=== PATIENT | female | born 1990 ===

== ENCOUNTER 2017-02-25 21:40 | Emergency (ER) | payer SELFPAY ==
[2017-02-25 21:53] VITALS: BP 142/71; PULSE 79; RESP 16; TEMP 98; O2SAT 100
--- NOTE | 2017-02-25 23:06 | ED PDOC ---
HPI: Chest Pain Time Seen by Provider: 02/25/17 21:56 Chief Complaint (Nursing): Chest Pain Chief Complaint (Provider): Chest Pain History Per: Patient History/Exam Limitations: no limitations Onset/Duration Of Symptoms: Days (x2) Current Symptoms Are (Timing): Still Present Additional Complaint(s): Cary Swann is a 26 year old female who presents to the emergency department with a complaint of intermittent anterior chest pain exasperated with arm movements. Denied difficulty breathing, cough, legs swelling, radiation of pain or shortness of breath with exertion. PMD: none provided Past Medical History Reviewed: Historical Data, Nursing Documentation, Vital Signs Vital Signs: Last Vital Signs Temp 98.0 F 02/25/17 21:51 Pulse 79 02/25/17 21:51 Resp 16 02/25/17 21:51 BP 142/71 02/25/17 21:51 Pulse Ox 100 02/26/17 02:58 - Medical History PMH: No Chronic Diseases - Surgical History Surgical History: No Surg Hx - Family History Family History: States: Unknown Family Hx - Social History Current smoker - smoking cessation education provided: No Alcohol: Social Drugs: Denies - Home Medications Home Medications: Ambulatory Orders Medication Instructions Recorded Naproxen 375 mg PO Q8 PRN #21 tab 08/08/14 diaZEpam [Valium] 5 mg PO Q6 PRN #14 tab 08/08/14 Cyclobenzaprine [Cyclobenzaprine 10 mg PO TID PRN #20 tab 04/28/16 HCl] Lidoderm Patch Removal 1 unit TOP DAILY #30 ea 04/28/16 Naproxen [Naprosyn] 500 mg PO BID #20 tab 04/28/16 - Allergies Allergies/Adverse Reactions: Allergies Allergy/AdvReac Type Severity Reaction Status Date / Time No Known Allergies Allergy Verified 02/25/17 21:51 MERCY Risk Score for UA/NSTEMI - MERCY Risk Score Age > 64: NO 3 or more CAD Risk Factors: NO Known CAD (Stenosis greater than 50%): NO Aspirin use in past 7 days: NO Severe Angina: NO EKG ST changes greater than 0.5mm: NO Positive Cardiac Marker: NO MERCY Score: 0 Risk %: 5% Curb-65 Severity Score - CURB-65 Severity Score Confusion: No Bun >19mg/dl (>7mmol/L): No Respiratory Rate greater than/equal to 30: No Systolic BP <90 or Diastolic BP less than/equal 60mmHg: No Age >64: No Curb-65 Score: 0 Percentage 30-day mortality: 0.6% Review of Systems ROS Statement: Except As Marked, All Systems Reviewed And Found Negative Cardiovascular: Positive for: Chest Pain (anterior intermittently) Respiratory: Negative for: Cough, SOB with Exertion, Other (dyspnea) Musculoskeletal: Negative for: Other (leg swellings) Physical Exam - Reviewed Nursing Documentation Reviewed: Yes Vital Signs Reviewed: Yes - Physical Exam Appears: Positive for: Well, Non-toxic, No Acute Distress Head Exam: Positive for: ATRAUMATIC, NORMAL INSPECTION, NORMOCEPHALIC Skin: Positive for: Normal Color Cardiovascular/Chest: Positive for: Regular Rate, Rhythm, Other (tender anterior chest wall). Negative for: Chest Non Tender Respiratory: Positive for: Normal Breath Sounds. Negative for: Crackles, Rales , Rhonchi, Wheezing Gastrointestinal/Abdominal: Positive for: Normal Exam Extremity: Positive for: Normal ROM. Negative for: Tenderness, Pedal Edema, Deformity Neurologic/Psych: Positive for: Alert, professional advisor II-XII, Oriented - Laboratory Results Result Diagrams: 02/25/17 23:07 02/25/17 23:07 - ECG O2 Sat by Pulse Oximetry: 100 (RA) Pulse Ox Interpretation: Normal Medical Decision Making Medical Decision Making: Initial Impression: Chest Pain Differential diagnosis: Costochondritis R/O acute coronary syndrome, pulmonary embolism Initial Plan: * EKG * Labs * Troponin I * D Dimer * CXR * Toradol 30mg IVP * mainframe systems administrator * CTA chest with IV contrast Time: 0206 --CTA chest FINDINGS: Limitations: Suboptimal timing of bolus. Pulmonary arteries: No definite pulmonary embolism. Aorta: No aneurysm. No dissection. Lungs: No consolidation. RIGHT middle lobe calcified granuloma. 0.2 cm subpleural nodule vs focal scarring RIGHT lower lobe. Pleural space: No significant effusion. No pneumothorax. Heart: Mild cardiomegaly. No significant pericardial effusion. Bones/joints: No acute fracture. No dislocation. Soft tissues: Unremarkable. Lymph nodes: No pathologically enlarged lymph nodes. Kidneys and ureters: Small calculus within LEFT kidney. IMPRESSION: 1. No definite CT evidence of pulmonary embolism. 2. Incidental/non-acute findings are described above. Time: 0258 Upon provider reevaluation patient is medically stable and requires no further treatment in the ED at this time. Patient will be discharged home. Counseling was provided and all questions were answered regarding diagnosis and need for follow up with [facility]. There is agreement to discharge plan. Return if symptoms persist or worsen. Clinical Impression: Chest Pain Scribe Attestation: Documented by Christiana Patton, acting as a scribe for Rm Valero MD. Provider Scribe Attestation: All medical record entries made by the Scribe were at my direction and personally dictated by me. I have reviewed the chart and agree that the record accurately reflects my personal performance of the history, physical exam, medical decision making, and the department course for this patient. I have also personally directed, reviewed, and agree with the discharge instructions and disposition. Disposition - Clinical Impression Clinical Impression: Chest pain - Patient ED Disposition Is Patient to be Admitted: No Doctor Will See Patient In The: Office Counseled Patient/Family Regarding: Studies Performed, Diagnosis, Need For Followup - Disposition Referrals: [facility] [Outside] Disposition: Routine/Home Disposition Time: 02:58 Condition: GOOD Additional Instructions: Take advil for pain. Follow up with your PCP in 2-3 days. Instructions: Costochondritis (ED) Print Language: ROMANIAN
[2017-02-25 23:11] LABS: BASO # 0.1 K/uL (0.0-0.2); BASO % 0.7 % (0.0-2.0); EOS # 0.2 K/uL (0.0-0.7); EOS % 1.3 % (0.0-4.0); HEMATOCRIT 39.8 % (34.0-47.0); LYMPH # 4.2 K/uL (1.0-4.3); MEAN CELL VOLUME 80.3 fl (81.0-99.0); MEAN CORPUSCULAR HEMOGLOBIN 25.7 pg (27.0-31.0); MEAN PLATELET VOLUME 10.8 fl (7.2-11.7); MONO # 1.2 K/uL (0.0-0.8); MONO % 9.4 % (0.0-10.0); NEUT # 7.3 K/uL (1.8-7.0); NEUT % 56.6 % (50.0-75.0); RED CELL DISTRIBUTION WIDTH 14.2 % (11.5-14.5)
[2017-02-25 23:25] LABS: BLOOD UREA NITROGEN 18 mg/dl (7-17); CALCIUM 9.5 mg/dL (8.4-10.2); CARBON DIOXIDE 25 mmol/L (22-30); CHLORIDE 104 mmol/L (98-107); GFR AFRICAN-AMERICAN > 60; GLUCOSE,RANDOM 91 mg/dL (65-105); POTASSIUM 4.2 MMOL/L (3.6-5.0); SODIUM 141 mmol/l (132-148)
[2017-02-26] MEDS ORDERED: Sodium Chloride 0.9% 50 ML IV ONE (01:24)
[2017-02-26] MEDS ORDERED: Iodixanol 320 MG/ML 100 ML BOTTLE IV ONE (01:24)
--- NOTE | 2017-02-26 08:16 | CT ---
PROCEDURE: CT Chest with contrast (Pulmonary Angiogram) HISTORY: chest pain COMPARISON: Lung base sections from abdomen pelvis CT without contrast dated 03/05/2014. Chest radiograph 02/25/2017. TECHNIQUE: Axial computed tomography images were obtained of the chest in the pulmonary arterial phase of enhancement. Coronal and sagittal reformatted images were created and reviewed. Intravenous contrast dose: Visipaque 320, 95 cc. Radiation dose: Total exam DLP = 401 mGy-cm. This CT exam was performed using one or more of the following dose reduction techniques: Automated exposure control, adjustment of the mA and/or kV according to patient size, and/or use of iterative reconstruction technique. FINDINGS: PULMONARY ARTERIES: No definite pulmonary embolism is identified. Contrast opacification is somewhat suboptimal. AORTA: No acute findings. No thoracic aortic aneurysm. LUNGS: Unremarkable. No nodule, mass or pulmonary consolidation. Small calcified granuloma is identified at the right middle lobe base anteriorly once again. PLEURAL SPACES: Unremarkable. No effusion or pneuomothorax. HEART: Mild cardiomegaly is noted. No pericardial effusion. No definite pulmonary arterial or venous derangement. LYMPH NODES: No lymphadenopathy. BONES, CHEST WALL: Unremarkable. No fracture or destructive lesion OTHER FINDINGS: Unremarkable. IMPRESSION: No definite evidence to suggest pulmonary embolus at this time. Mild cardiomegaly is appreciated. No definite infiltrate pleural or pericardial effusion identified.
--- NOTE | 2017-02-26 10:39 | CARD ---
APPROVED REPORT EKG Measurement Heart [id number] <Conclusion> Normal sinus rhythm Normal ECG
--- NOTE | 2017-02-26 13:39 | RAD ---
HISTORY: chest pain COMPARISON: Subsequent chest CT 02/26/2017. TECHNIQUE: Chest PA and lateral FINDINGS: LUNGS: No acute infiltrate is identified with the bilateral lung padron appearing well aerated. PLEURA: No significant pleural effusion identified. No pneumothorax apparent. CARDIOVASCULAR: Upper limits normal size. OSSEOUS STRUCTURES: No significant abnormalities. VISUALIZED UPPER ABDOMEN: Normal. OTHER FINDINGS: None. IMPRESSION: No acute pulmonary disease identified. Cardiac size appears upper limits of normal.
== END 2017-02-26 03:06 | disposition home or self-care (01) ==
LOC: H.ER 21:40
DX: R07.89 Other chest pain (principal)
CPT/HCPCS: 71020; 71275; 80048; 81025; 84484; 85025; 85378; 93005; 96374; 99282; J1885; Q9967

== ENCOUNTER 2017-09-07 20:32 | Emergency (ER) | payer SELFPAY ==
[2017-09-07 21:15] VITALS: BP 132/80; PULSE 103; RESP 18; TEMP 100.1; O2SAT 99
--- NOTE | 2017-09-07 22:14 | ED PDOC ---
HPI: CCC, URI, Sore Throat Time Seen by Provider: 09/07/17 21:32 Chief Complaint (Nursing): Flu-like Symptoms Chief Complaint (Provider): fever, throat pain History Per: Patient History/Exam Limitations: no limitations Onset/Duration Of Symptoms: Days (2) Current Symptoms Are (Timing): Still Present Location Of Pain: Throat Associated Symptoms: Fever, Sore Throat Additional History Per: Patient Additional Complaint(s): 27 y/o female presents with fever x 2 days. Associated headache, runny nose, sore throat. Patient was evaluate by her PMD yesterday and prescribed Amoxicillin. Denies neck pain, vomiting, cough, chest pain, shortness of breath , abdominal pain, recent travel, sick contacts. Past Medical History Reviewed: Historical Data, Nursing Documentation, Vital Signs Vital Signs: Last Vital Signs Temp 100.1 F H 09/07/17 21:11 Pulse 103 H 09/07/17 21:11 Resp 18 09/07/17 21:11 BP 132/80 09/07/17 21:11 Pulse Ox 99 09/07/17 22:15 - Medical History PMH: No Chronic Diseases - Surgical History Surgical History: No Surg Hx - Family History Family History: States: Unknown Family Hx - Home Medications Home Medications: Ambulatory Orders Medication Instructions Recorded Naproxen 375 mg PO Q8 PRN #21 tab 08/08/14 diaZEpam [Valium] 5 mg PO Q6 PRN #14 tab 08/08/14 Cyclobenzaprine [Cyclobenzaprine 10 mg PO TID PRN #20 tab 04/28/16 HCl] Lidoderm Patch Removal 1 unit TOP DAILY #30 ea 04/28/16 Naproxen [Naprosyn] 500 mg PO BID #20 tab 04/28/16 Ibuprofen [Motrin Tab] 1 tab PO Q6 PRN #20 tab 09/07/17 - Allergies Allergies/Adverse Reactions: Allergies Allergy/AdvReac Type Severity Reaction Status Date / Time No Known Allergies Allergy Verified 09/07/17 21:11 Review of Systems ROS Statement: Except As Marked, All Systems Reviewed And Found Negative Constitutional: Positive for: Fever ENT: Positive for: Throat Pain Physical Exam - Reviewed Nursing Documentation Reviewed: Yes Vital Signs Reviewed: Yes - Physical Exam Appears: Positive for: Well, Non-toxic, No Acute Distress Head Exam: Positive for: ATRAUMATIC, NORMAL INSPECTION, NORMOCEPHALIC Skin: Positive for: Normal Color Eye Exam: Positive for: Normal appearance ENT: Positive for: Pharyngeal Erythema, Tonsillar Exudate, Other (uvula midline) . Negative for: Tonsillar Swelling Neck: Positive for: Normal Cardiovascular/Chest: Positive for: Regular Rate, Rhythm Respiratory: Positive for: Normal Breath Sounds Gastrointestinal/Abdominal: Positive for: Normal Exam Back: Positive for: Normal Inspection Extremity: Positive for: Normal ROM Lymphatic: Positive for: Normal Exam Neurologic/Psych: Positive for: Alert, Oriented - ECG O2 Sat by Pulse Oximetry: 99 - Progress ED Course And Treament: Ibuprofen PO, flu, strep Patient educated on findings, advised to continue Amoxicillin as prescribed. Rx ibuprofen given Advised follow up PMD 2-3 days. Return precautions given. Disposition - Clinical Impression Clinical Impression: Strep throat - Patient ED Disposition Is Patient to be Admitted: No Counseled Patient/Family Regarding: Studies Performed, Diagnosis, Need For Followup, Rx Given - Disposition Disposition: Routine/Home Disposition Time: 23:19 Condition: IMPROVED Prescriptions: Ibuprofen [Motrin Tab] 1 tab PO Q6 PRN #20 tab PRN Reason: Fever >100.4 F Instructions: Strep Throat (ED)
== END 2017-09-08 00:02 | disposition home or self-care (01) ==
LOC: H.ER 20:32
DX: J02.0 Streptococcal pharyngitis (principal)

== ENCOUNTER 2017-10-15 10:42 | Emergency (ER) | payer OTHER ==
[2017-10-15 11:00] VITALS: BMI 37.3
[2017-10-15 11:02] VITALS: BP 134/88; PULSE 79; RESP 20; TEMP 98.4; O2SAT 99
--- NOTE | 2017-10-15 11:47 | ED PDOC ---
HPI: Back Time Seen by Provider: 10/15/17 11:35 Chief Complaint (Nursing): Back Pain Chief Complaint (Provider): Back Pain History Per: Patient History/Exam Limitations: no limitations Onset/Duration Of Symptoms: Days (x10) Current Symptoms Are (Timing): Still Present Quality Of Discomfort: "Pain" Severity: Mild Previous Symptoms: Back Pain Associated Symptoms: None Additional Complaint(s): Cary Swann is a 27 year old female, with a past medical history of chronic back pain, who presents to the emergency department complaining of lower back pain onset for x10 days. Patient states the pain is worst on the left side more so than the right. She took Ibuprofen with no relief, last dose was last night. Patient has been seen in the ED for similar symptoms, last time she was in the ED she received an injection in the buttocks which resolved the pain. She denies any fever, chills, new weakness or numbness, bladder or bowel incontinence. No further medical complaints. PMD: None provided. Past Medical History Reviewed: Historical Data, Nursing Documentation, Vital Signs Vital Signs: Last Vital Signs Temp 98.4 F 10/15/17 11:01 Pulse 79 10/15/17 11:01 Resp 20 10/15/17 11:01 BP 134/88 10/15/17 11:01 Pulse Ox 99 10/15/17 11:01 - Medical History PMH: Back Problems - Surgical History Surgical History: No Surg Hx - Family History Family History: States: Unknown Family Hx - Home Medications Home Medications: Ambulatory Orders Medication Instructions Recorded Naproxen 375 mg PO Q8 PRN #21 tab 08/08/14 diaZEpam [Valium] 5 mg PO Q6 PRN #14 tab 08/08/14 Cyclobenzaprine [Cyclobenzaprine 10 mg PO TID PRN #20 tab 04/28/16 HCl] Lidoderm Patch Removal 1 unit TOP DAILY #30 ea 04/28/16 Naproxen [Naprosyn] 500 mg PO BID #20 tab 04/28/16 Ibuprofen [Motrin Tab] 1 tab PO Q6 PRN #20 tab 09/07/17 Cyclobenzaprine [Cyclobenzaprine 10 mg PO TID PRN #15 tab 10/15/17 HCl] Naproxen [Naprosyn] 500 mg PO BID PRN #15 tablet 10/15/17 - Allergies Allergies/Adverse Reactions: Allergies Allergy/AdvReac Type Severity Reaction Status Date / Time No Known Allergies Allergy Verified 09/07/17 21:11 Review of Systems ROS Statement: Except As Marked, All Systems Reviewed And Found Negative Constitutional: Negative for: Fever, Chills Genitourinary Female: Negative for: Incontinence (bladder or bowel) Musculoskeletal: Positive for: Back Pain (lower) Neurological: Negative for: Weakness, Numbness Physical Exam - Reviewed Nursing Documentation Reviewed: Yes Vital Signs Reviewed: Yes - Physical Exam Appears: Positive for: Non-toxic, In Acute Distress (mild painful) Head Exam: Positive for: ATRAUMATIC, NORMAL INSPECTION, NORMOCEPHALIC Skin: Positive for: Normal Color, Warm, Dry Eye Exam: Positive for: Normal appearance Neck: Positive for: Painless ROM Back: Positive for: Vertebral Tenderness (lower lumbar tenderness), Other ( midline and paraspinal tenderness, left side more so than right. ) Extremity: Positive for: Normal ROM. Negative for: Deformity, Swelling Neurologic/Psych: Positive for: Alert, Oriented - ECG O2 Sat by Pulse Oximetry: 99 (RA) Pulse Ox Interpretation: Normal Medical Decision Making Medical Decision Making: Initial Impression: Acute on chronic back pain Initial Plan: --Urine dipstick --Urine --Lumbar spine complete [RAD] --Flexeril 10 mg PO --Toradol 30 mg IM --Reevaluation 12:32 Lumbar Spine X-Ray FINDINGS: BONES: Normal alignment. No listhesis. No fracture. No spondylolysis bilaterally. DISC SPACES: Marginal disc height loss is seen at L4-5 and there is subtle spondylosis at L2- 3 and L3-4. Remaining intervertebral disc spaces are unremarkable. OTHER FINDINGS: None. IMPRESSION: Minimal mid to inferior lumbar spondylosis with subtle disc height loss at L4-5 also indicative of degenerative disease. No fracture or spondylolisthesis appreciated throughout the exam. No definite destructive bony lesion identified. Scribe Attestation: Documented by Markus Piña, acting as a scribe for Randee Renteria MD Provider Scribe Attestation: All medical record entries made by the Scribe were at my direction and personally dictated by me. I have reviewed the chart and agree that the record accurately reflects my personal performance of the history, physical exam, medical decision making, and the department course for this patient. I have also personally directed, reviewed, and agree with the discharge instructions and disposition. Disposition - Clinical Impression Clinical Impression: Lumbar spondylosis - Disposition Referrals: [facility] [Outside] Condition: STABLE Prescriptions: Cyclobenzaprine [Cyclobenzaprine HCl] 10 mg PO TID PRN #15 tab PRN Reason: Pain Naproxen [Naprosyn] 500 mg PO BID PRN #15 tablet PRN Reason: Pain, Moderate (4-7) Instructions: Low Back Pain in Adults Forms: [employer] (Sri Lankan) Print Language: AMHARIC
--- NOTE | 2017-10-15 12:33 | RAD ---
PROCEDURE: Radiographs of the Lumbar Spine. HISTORY: Low back pain COMPARISON: No prior. FINDINGS: BONES: Normal alignment. No listhesis. No fracture. No spondylolysis bilaterally. DISC SPACES: Marginal disc height loss is seen at L4-5 and there is subtle spondylosis at L2-3 and L3-4. Remaining intervertebral disc spaces are unremarkable. OTHER FINDINGS: None. IMPRESSION: Minimal mid to inferior lumbar spondylosis with subtle disc height loss at L4-5 also indicative of degenerative disease. No fracture or spondylolisthesis appreciated throughout the exam. No definite destructive bony lesion identified.
== END 2017-10-15 13:09 | disposition home or self-care (01) ==
LOC: H.ER 10:42
DX: M47.817 Spondylosis without myelopathy or radiculopathy, lumbosacral region (principal); G89.29 Other chronic pain
CPT/HCPCS: 72114; 81025; 96372; 99283; J1885

== ENCOUNTER 2018-06-09 15:29 | Emergency (ER) | payer OTHER ==
[2018-06-09 15:29] VITALS: BMI 37.3
[2018-06-09 15:38] VITALS: TEMP 98.5; O2SAT 99
--- NOTE | 2018-06-09 16:17 | ED PDOC ---
HPI: Abdomen Chief Complaint (Nursing): Abdominal Pain Additional Complaint(s): 27 y/o A1 9-week female (by LMP) presents to the ED c/o vaginal bleeding without clots and intermittent, mild lower abdominal cramping x 2 days. Pt has not yet had an ultrasound for this , appointment scheduled for next week. LMP 04/05/18. Denies fevers, chills, N/V, pelvic pain, back pain, urinary symptoms, dizziness, weakness. Past Medical History Reviewed: Historical Data, Nursing Documentation, Vital Signs Vital Signs: Last Vital Signs Temp 98.5 F 06/09/18 15:37 Pulse 79 06/09/18 15:37 Resp 16 06/09/18 15:37 BP 127/88 06/09/18 15:37 Pulse Ox 99 06/09/18 15:37 - Medical History PMH: Back Problems Comment Only: Chronic Kidney Disease (Denies) - Family History Family History: States: Unknown Family Hx - Home Medications Home Medications: Ambulatory Orders Medication Instructions Recorded Naproxen 375 mg PO Q8 PRN #21 tab 08/08/14 diaZEpam [Valium] 5 mg PO Q6 PRN #14 tab 08/08/14 Cyclobenzaprine [Cyclobenzaprine 10 mg PO TID PRN #20 tab 04/28/16 HCl] Lidoderm Patch Removal 1 unit TOP DAILY #30 ea 04/28/16 Naproxen [Naprosyn] 500 mg PO BID #20 tab 04/28/16 Ibuprofen [Motrin Tab] 1 tab PO Q6 PRN #20 tab 09/07/17 Cyclobenzaprine [Cyclobenzaprine 10 mg PO TID PRN #15 tab 10/15/17 HCl] Naproxen [Naprosyn] 500 mg PO BID PRN #15 tablet 10/15/17 - Allergies Allergies/Adverse Reactions: Allergies Allergy/AdvReac Type Severity Reaction Status Date / Time No Known Allergies Allergy Verified 09/07/17 21:11 Review of Systems ROS Statement: Except As Marked, All Systems Reviewed And Found Negative Constitutional: Negative for: Fever, Chills Cardiovascular: Negative for: Chest Pain, Palpitations Respiratory: Negative for: Cough, Shortness of Breath Gastrointestinal: Positive for: Abdominal Pain (lower cramping). Negative for: Nausea, Vomiting Genitourinary Female: Positive for: Vaginal Bleeding. Negative for: Dysuria, Frequency, Incontinence, Pelvic Pain Musculoskeletal: Negative for: Neck Pain, Back Pain Skin: Negative for: Rash Neurological: Negative for: Weakness, Numbness, Dizziness Physical Exam - Reviewed Nursing Documentation Reviewed: Yes Vital Signs Reviewed: Yes - Physical Exam Appears: Positive for: Well, Non-toxic, No Acute Distress Head Exam: Positive for: ATRAUMATIC, NORMAL INSPECTION, NORMOCEPHALIC Skin: Positive for: Normal Color, Warm, Dry Eye Exam: Positive for: EOMI, Normal appearance, PERRL Neck: Positive for: Normal, Painless ROM, Supple Cardiovascular/Chest: Positive for: Regular Rate, Rhythm Respiratory: Positive for: Normal Breath Sounds. Negative for: Decreased Breath Sounds, Rales, Rhonchi, Wheezing Pulses-Radial (L): 2+ Pulses-Radial (R): 2+ Gastrointestinal/Abdominal: Positive for: Normal Exam, Bowel Sounds (normoactive), Soft. Negative for: Tenderness Pelvic Exam: Positive for: External Exam Normal, Bimanual Exam Normal, No Cerv. Motion Tender, No Masses, Blood, Other (cervical os closed) Back: Positive for: Normal Inspection. Negative for: L CVA Tenderness, R CVA Tenderness, Vertebral Tenderness, Decreased ROM Extremity: Positive for: Normal ROM Neurologic/Psych: Positive for: Alert, Oriented - Laboratory Results Result Diagrams: 06/09/18 16:28 06/09/18 16:28 - ECG O2 Sat by Pulse Oximetry: 99 Medical Decision Making Medical Decision Making: Initial Plan: * CBC, CMP * beta HCG * UA, Ucx * OB TV US Patient's blood type is A positive, noted on prior visit. No indication for RhoGam. CBC: wnl CMP: wnl beta HC.10 UA: blood, pt currently bleeding; otherwise normal FINDINGS: UTERUS: Single intrauterine gestation. Gestational sac diameter measures 1.0 cm too small to accurately characterize gestational age. Yolk sac and pole are not visualized. Lorena-gestational hemorrhage: None. Measures 8.0 x 4.2 x 5.5 cm. The uterus is anteverted. There are multiple int ramural fibroids, the largest anterior wall fundal fibroid measures 1.8 x 1.3 x 1.1 cm. There is a large anterior wall subserosal pedunculated fibroid to the right measuring 5.2 x 4.0 x 4.3 cm. CERVIX: Long and closed. No cervical abnormality seen. RIGHT OVARY: Measures 2.6 x 2.0 x 2.6 cm. No mass. Normal flow. LEFT OVARY: Measures 3.2 x 2.8 x 3.5 cm. No mass. Normal flow. There is a 2.5 x 1.7 x 1.9 cm corpus luteum cyst. FREE FLUID: None. OTHER FINDINGS: None. IMPRESSION: Single live intrauterine gestation. Gestational sac diameter measures 1.0 cm too small to accurately characterize gestational age. pole and yolk sac are not visualized on the current examination. Clinical follow-up is recommended to assess viability. Fibroid uterus, the largest anterior wall subserosal pedunculated fibroid to the right measures 5.2 x 4.0 x 4.3 cm. Case discussed with Dr. Mcfarland, who agrees with plan of care and patient disposition to followup with OBGYN outpatient and return for new/worsening symptoms. Plan of care and diagnostic studies discussed with patient, and strict instructions given regarding importance of follow up with OBGYN within 2 days and signs to return to Emergency Department, to include worsening abdominal pain, vaginal bleeding, fever, chills, N/V or any other new/worsening symptoms. Patient verbalizes understanding of discussion. Patient A&Ox3, ambulating with steady gait, stable for discharge home. Copies of US and labwork given to patient. Disposition - Clinical Impression Clinical Impression: Vaginal bleeding affecting early , Uterine fibroid - Disposition Referrals: [facility] [Outside] [facility] [Outside] Emily Haney MD [Staff Provider] - Disposition: Routine/Home Disposition Time: 18:39 Condition: GOOD Additional Instructions: Increase fluids Bedrest Tylenol for pain Followup with OBGYN within 2 days Followup with primary within 2 days Return to ER for new/worsening symptoms Instructions: Bleeding With Forms: [employer] (Yakut), [facility] ED School/Work Excuse
[2018-06-09 16:38] LABS: BASO # 0.1 K/uL (0.0-0.2); BASO % 1.1 % (0.0-2.0); EOS # 0.1 K/uL (0.0-0.7); EOS % 1.2 % (0.0-4.0); HEMOGLOBIN 12.2 g/dL (12.0-16.0); LYMPH # 3.8 K/uL (1.0-4.3); LYMPH % 32.1 % (20.0-40.0); MEAN CELL VOLUME 81.5 fl (81.0-99.0); MEAN CORPUSCULAR HEMOGLOBIN 26.6 pg (27.0-31.0); MEAN CORPUSCULAR HGB CONC 32.7 g/dL (33.0-37.0); MEAN PLATELET VOLUME 9.4 fl (7.2-11.7); MONO % 8.2 % (0.0-10.0); NEUT # 6.9 K/uL (1.8-7.0); NEUT % 57.4 % (50.0-75.0); RBC 4.6 Mil/uL (3.80-5.20); RED CELL DISTRIBUTION WIDTH 13.9 % (11.5-14.5); WHITE BLOOD COUNT 11.9 K/uL (4.8-10.8)
[2018-06-09 16:47] LABS: ALB/GLOB RATIO 1.3 (1.0-2.1); ALBUMIN 4.6 g/dL (3.5-5.0); ALT/SGPT 35 U/L (9-52); AST/SGOT 32 U/L (14-36); BLOOD UREA NITROGEN 10 mg/dl (7-17); CALCIUM 9.1 mg/dL (8.4-10.2); GFR NON-AFRICAN AMERICAN > 60
[2018-06-09 16:50] LABS: SQUAMOUS EPITHIAL 1 /hpf (0-5); URINE BILIRUBIN NEGATIVE (NEGATIVE); URINE BLOOD MODERATE (NEGATIVE); URINE CLARITY SLIGHTY-CLOUDY (Clear); URINE COLOR YELLOW (YELLOW); URINE GLUCOSE (UA) NEG (Normal); URINE LEUKOCYTE ESTERASE NEG Leu/uL (Negative); URINE PROTEIN NEGATIVE (NEGATIVE); URINE UROBILINOGEN 0.2-1.0 mg/dL (0.2-1.0)
--- NOTE | 2018-06-09 18:09 | US ---
Date of service: 06/09/2018 PROCEDURE: OB Pelvic Ultrasound HISTORY: OB, vaginal bleeding and cramping COMPARISON: None available. FINDINGS: UTERUS: Single intrauterine gestation. Gestational sac diameter measures 1.0 cm too small to accurately characterize gestational age. Yolk sac and pole are not visualized. Lorena-gestational hemorrhage: None. Measures 8.0 x 4.2 x 5.5 cm. The uterus is anteverted. There are multiple intramural fibroids, the largest anterior wall fundal fibroid measures 1.8 x 1.3 x 1.1 cm. There is a large anterior wall subserosal pedunculated fibroid to the right measuring 5.2 x 4.0 x 4.3 cm. CERVIX: Long and closed. No cervical abnormality seen. RIGHT OVARY: Measures 2.6 x 2.0 x 2.6 cm. No mass. Normal flow. LEFT OVARY: Measures 3.2 x 2.8 x 3.5 cm. No mass. Normal flow. There is a 2.5 x 1.7 x 1.9 cm corpus luteum cyst. FREE FLUID: None. OTHER FINDINGS: None. IMPRESSION: Single live intrauterine gestation. Gestational sac diameter measures 1.0 cm too small to accurately characterize gestational age. pole and yolk sac are not visualized on the current examination. Clinical follow-up is recommended to assess viability. Fibroid uterus, the largest anterior wall subserosal pedunculated fibroid to the right measures 5.2 x 4.0 x 4.3 cm.
[2018-06-09 19:11] VITALS: BP 122/82; PULSE 74; RESP 18
== END 2018-06-09 19:09 | disposition home or self-care (01) ==
LOC: SUPCPDRO 15:29 → H.ER 15:29
DX: O20.9 Hemorrhage in early pregnancy, unspecified (principal); D25.9 Leiomyoma of uterus, unspecified; O34.10 Maternal care for benign tumor of corpus uteri, unspecified trimester

== ENCOUNTER 2018-06-21 16:03 | Emergency (ER) | payer OTHER ==
[2018-06-21 16:03] VITALS: BMI 37.3
[2018-06-21 16:34] VITALS: RESP 16
--- NOTE | 2018-06-21 17:03 | ED PDOC ---
HPI: Back Time Seen by Provider: 06/21/18 16:35 Chief Complaint (Nursing): Back Pain Chief Complaint (Provider): Back Pain History Per: Patient History/Exam Limitations: no limitations Onset/Duration Of Symptoms: Hrs (x7) Current Symptoms Are (Timing): Still Present Quality Of Discomfort: "Pain" Previous Symptoms: Back Pain Associated Symptoms: None Additional Complaint(s): 27 year old female with a history of 3 herniated lumbar discs (diagnosed last year) presents to the ED for evaluation of lower back pain onset 10am today. Patient reports the pain started when she bent down to put socks on. She took 600 mg of Advil when pain started. Patient reports pain is worse with movement and radiating down to right leg, consistent with prior symptoms in the past. She denies any trauma, injury/falls, nausea, vomiting, fever, saddle anesthesia, incontinence, dysuria, hematuria, shortness of breath, chest pain or any other complaints. PMD: LMP: March Past Medical History Reviewed: Historical Data, Nursing Documentation, Vital Signs Vital Signs: Last Vital Signs Temp 98.4 F 06/21/18 16:32 Pulse 82 06/21/18 16:32 Resp 16 06/21/18 16:32 BP 133/86 06/21/18 16:32 Pulse Ox 82 L 06/21/18 16:32 - Medical History PMH: Back Problems - Surgical History Surgical History: No Surg Hx - Family History Family History: States: Unknown Family Hx - Social History Current smoker - smoking cessation education provided: No Ex-Smoker (has not smoked in the last 12 months): No Alcohol: None Drugs: Denies - Home Medications Home Medications: Ambulatory Orders Medication Instructions Recorded Cyclobenzaprine [Cyclobenzaprine 10 mg PO Q8 PRN #12 tab 06/21/18 HCl] RX: Naproxen 500 mg PO BID PRN #20 tab 06/21/18 - Allergies Allergies/Adverse Reactions: Allergies Allergy/AdvReac Type Severity Reaction Status Date / Time No Known Allergies Allergy Verified 06/10/18 19:33 Review of Systems ROS Statement: Except As Marked, All Systems Reviewed And Found Negative Musculoskeletal: Positive for: Back Pain (lower) Physical Exam - Reviewed Nursing Documentation Reviewed: Yes Vital Signs Reviewed: Yes - Physical Exam Comments: GENERAL APPEARANCE: Patient is awake, alert, oriented x 3, in no acute distress. SKIN: Warm, dry; (-) cyanosis. CHEST AND RESPIRATORY: (-) rales, (-) rhonchi, (-) wheezes; breath sounds equal bilaterally. Respirations even and nonlabored. HEART AND CARDIOVASCULAR: (-) irregularity ABDOMEN AND GI: Soft; (-) tenderness; (-) palpable mass (-) CVA tenderness. BACK: (+)bilateral paralumbar tenderness, (-) midline tenderness, (-) sciatic notch tenderness. EXTREMITIES: (-) deformity. Distal pulses good bilaterally. NEURO AND PSYCH: Mental status as above. Patient is limping in ER. Speech: clear. (-) facial asymmetry (-) aphasia. Strength of lower extremities 5/5 bilaterally. Sensation intact throughout. - ECG O2 Sat by Pulse Oximetry: 82 (RA) Pulse Ox Interpretation: Normal Medical Decision Making Medical Decision Making: Time: 1654 Clinical Impression: Acute on chronic back pain, herniated discs Initial Plan: --Flexeril 10 mg PO (Not driving home) --Toradol 30 mg PO --Re-evaluation 1904 On re-evaluation, patient reports improvement of symptoms. On exam, patient remains AAOx3, in no acute distress. Vitals stable. Lab/Diagnostic results d/w the patient in great detail. Diagnosis of acute on chronic back pain, herniated lumbar discs d/w the patient. Based on history, exam and diagnostic results, plan will be for outpatient follow up with PMD/ortho. Patient instructed to follow-up with pmd / referral provided / the clinic in 1- 2 days without fail. Advised to take medication as prescribed. Return to the emergency room at any time for any new or worsening symptoms. Patient states she fully agrees with and understands discharge instructions. States that she agrees with the plan and disposition. Verbalized and repeated discharge instructions and plan. I have given the patient opportunity to ask any additional questions. Scribe Attestation: Documented by Jovana Carbajal, acting as a scribe for Basilia Mann PA-C. Provider Scribe Attestation: All medical record entries made by the Scribe were at my direction and personally dictated by me. I have reviewed the chart and agree that the record accurately reflects my personal performance of the history, physical exam, medical decision making, and the department course for this patient. I have also personally directed, reviewed, and agree with the discharge instructions and disposition. Disposition - Clinical Impression Clinical Impression: Low back pain, Lumbar herniated disc - Patient ED Disposition Is Patient to be Admitted: No Counseled Patient/Family Regarding: Studies Performed, Diagnosis, Need For Foll owup, Rx Given - Disposition Referrals: Vamsi Parker III, MD [Staff Provider] - primary, doctor [Other] Disposition: Routine/Home Disposition Time: 19:05 Condition: IMPROVED Additional Instructions: The emergency medical care you received today was directed at your acute symptoms. If you were prescribed any medication, please fill it and take as directed. It may take several days for your symptoms to resolve. Return to the Emergency Department if your symptoms worsen, do not improve, or if you have any other problems. Please contact your doctor in 2 days for re-evaluation and follow up / or call one of the physicians/clinics you have been referred to that are listed on the Patient Visit Information form that is included in your discharge packet. Bring any paperwork you were given at discharge with you along with any medications you are taking to your follow up visit. Our treatment cannot replace ongoing medical care by a primary care provider (PCP) outside of the emergency department. Prescriptions: Cyclobenzaprine [Cyclobenzaprine HCl] 10 mg PO Q8 PRN #12 tab PRN Reason: Muscle Spasm RX: Naproxen 500 mg PO BID PRN #20 tab PRN Reason: Pain, Moderate (4-7) Instructions: Low Back Pain in Adults, Herniated Disc, Chronic Pain Forms: [employer] (Algerian) Print Language: BENGALI - POA Present On Arrival: None
[2018-06-21 19:43] VITALS: BP 128/78; PULSE 79; TEMP 98.1
[2018-06-22 00:17] VITALS: O2SAT 82
== END 2018-06-21 19:43 | disposition home or self-care (01) ==
LOC: H.ER 16:03
DX: M54.5 Low back pain (principal); M51.26 Other intervertebral disc displacement, lumbar region; Z87.891 Personal history of nicotine dependence; G89.29 Other chronic pain
CPT/HCPCS: 96372; 99283; J1885